=== PATIENT | female | born 1945 | race African-American/Black ===

== ENCOUNTER 2023-01-23 15:54 | Outpatient (REF) | payer MEDICARE, SELFPAY ==
--- NOTE | ~2023-01-23 | XR_ITS ---
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 Bilateral knee joint effusions are present. No acute osseous abnormalities. Diffuse vascular calcifications of the bilateral lower extremities. XR/XR knee RT 2V IMPRESSION: Moderate to severe degenerative changes of the bilateral knees.
--- NOTE | ~2023-01-23 | XR_ITS ---
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 Bilateral knee joint effusions are present. No acute osseous abnormalities. Diffuse vascular calcifications of the bilateral lower extremities. XR/XR knee standing BI IMPRESSION: Moderate to severe degenerative changes of the bilateral knees.
--- NOTE | ~2023-01-23 | XR_ITS ---
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 Bilateral knee joint effusions are present. No acute osseous abnormalities. Diffuse vascular calcifications of the bilateral lower extremities. XR/XR knee LT 2V IMPRESSION: Moderate to severe degenerative changes of the bilateral knees.
== END 2023-01-23 15:55 | disposition home or self-care (01) ==
LOC: HO.HOSX 15:54
PROVIDERS: Visit Provider Physician Assistant
DX: M17.0 Bilateral primary osteoarthritis of knee (principal); E11.9 Type 2 diabetes mellitus without complications
CPT/HCPCS: 20610; 73560; 73565; 99202; J1020

== ENCOUNTER → 2023-02-18 12:59 | Outpatient (BNVA) | payer MEDICARE, SELFPAY | PROVIDERS: PCP Internal Medicine; Visit Provider Orthopaedic Surgery | DX: M65.341 Trigger finger, right ring finger (principal); R20.0 Anesthesia of skin | CPT/HCPCS: 20550; 99202; J1100 ==

== ENCOUNTER 2023-04-22 12:13 | Outpatient (REF) | payer MEDICARE, SELFPAY ==
--- NOTE | 2023-04-22 | EMG_ITS ---
Please see scanned EMG / Nerve Conduction Report. MTDD
== END 2023-04-22 12:14 | disposition home or self-care (01) ==
LOC: HO.NEURO 12:13
PROVIDERS: PCP Internal Medicine; Visit Provider Orthopaedic Surgery
DX: R20.0 Anesthesia of skin (principal); R20.2 Paresthesia of skin
CPT/HCPCS: 95885; 95886; 95910